=== PATIENT | female | born 1980 | race Caucasian/White ===

== ENCOUNTER 2018-10-10 22:06 | Emergency (ER) | payer BC ==
[2018-10-10 22:31] VITALS: RESP 18; TEMP 98.4
--- NOTE | 2018-10-10 23:38 | ED PDOC ---
HPI: CCC, URI, Sore Throat Time Seen by Provider: 10/10/18 23:00 Chief Complaint (Nursing): ENT Problem Chief Complaint (Provider): throat pain History Per: Patient History/Exam Limitations: no limitations Have you had recent travel within the past 21 days to any of the following countries: [place], [place], [place] or [place]?: No Onset/Duration Of Symptoms: Days Current Symptoms Are (Timing): Still Present Location Of Pain: Throat Sick Contacts (Context): Family Member(s) (sister ) Pain Scale Rating Of: 0 Additional History Per: Patient Additional Complaint(s): 38y/o female with no medication history presents to the ed c/o throat pain for 1 week worse today. Pt reports last friday she felt she was "coming down with something" and was taking home remedies. Today patient reports she could not bear the pain and wanted to come to ED. Pt denies fever, ear pain, n/v, drooling. Past Medical History Vital Signs: Last Vital Signs Temp 98.4 F 10/10/18 22:28 Pulse 86 10/10/18 22:28 Resp 18 10/10/18 22:28 BP 142/95 H 10/10/18 22:28 Pulse Ox 100 10/10/18 22:28 ASHLEY Report Viewed: No - Medical History PMH: No Chronic Diseases - Surgical History Surgical History: No Surg Hx - Family History Family History: States: Unknown Family Hx - Living Arrangements Living Arrangements: With Family - Social History Alcohol: None Drugs: Denies - Allergies Allergies/Adverse Reactions: Allergies Allergy/AdvReac Type Severity Reaction Status Date / Time No Known Allergies Allergy Verified 10/10/18 22:27 Review of Systems ENT: Positive for: Throat Pain (difficulty swolling due to pain, pt also reports unable to stick tongue out due to pain) Musculoskeletal: Positive for: Neck Pain (with movement) Physical Exam - Physical Exam Appears: Positive for: Well, Non-toxic, No Acute Distress Head Exam: Positive for: ATRAUMATIC, NORMAL INSPECTION, NORMOCEPHALIC Skin: Positive for: Normal Color Eye Exam: Positive for: Normal appearance ENT: Positive for: Normal ENT Inspection Neck: Positive for: Supple Cardiovascular/Chest: Positive for: Regular Rate, Rhythm Respiratory: Positive for: Normal Breath Sounds Back: Positive for: Normal Inspection Extremity: Positive for: Normal ROM Neurological/Psych: Positive for: Awake, Alert, Normal Tone, Oriented - Laboratory Results Urine POC: Negative - ECG O2 Sat by Pulse Oximetry: 100 - Progress ED Course And Treament: Rapid Strep: (-) Decadron 10mg IM Tylenol 975mg PO 0.9 NS 500CC CBC CMP TSH 00:00: Pt reassesed at this time. Pt reports pain has improved slightly but continues with pain and difficulty sticking out tongue due to pain. BLE ears are unremarkable. case discussed with Dr. Baldwin, recommendation to do Ct Neck and Soft tissue to r/o [employer] or other probable cause of neck pain. Pt made aware and agrees to plan. 00:10: Pt handed-off to Aretha Hodges, for follow-up of CT results. Re-evaluation Time: 12:09 Condition: Re-examined, Improving,but remains with symptoms Nebulizer Treatments/Peak Flow - Clinical Response Clinical Response: Improved Disposition - Clinical Impression Clinical Impression: Neck pain - Patient ED Disposition Is Patient to be Admitted: No - Disposition Disposition: Routine/Home Disposition Time: 00:00 Condition: STABLE Patient Signed Over To: Carroll Davison Handoff Comments: Pening Blood work and CT scan - POA Present On Arrival: None
[2018-10-11] MEDS ORDERED: Sodium Chloride 0.9% 500 ML IV SCH (00:15)
[2018-10-11 00:19] LABS: BASO # 0.1 K/uL (0.0-0.2); BASO % 0.7 % (0.0-2.0); EOS # 0.3 K/uL (0.0-0.7); EOS % 2.3 % (0.0-4.0); HEMOGLOBIN 12.2 g/dL (12.0-16.0); LYMPH # 2.2 K/uL (1.0-4.3); LYMPH % 17.8 % (20.0-40.0); MEAN CELL VOLUME 86.5 fl (81.0-99.0); MEAN CORPUSCULAR HEMOGLOBIN 28.5 pg (27.0-31.0); MEAN PLATELET VOLUME 7.9 fl (7.2-11.7); MONO # 0.8 K/uL (0.0-0.8); MONO % 6.4 % (0.0-10.0); NEUT # 9.1 K/uL (1.8-7.0); NEUT % 72.8 % (50.0-75.0); RBC 4.27 Mil/uL (3.80-5.20); RED CELL DISTRIBUTION WIDTH 13.4 % (11.5-14.5); WHITE BLOOD COUNT 12.5 K/uL (4.8-10.8)
[2018-10-11 00:46] LABS: ALT/SGPT 18 U/L (9-52); AST/SGOT 20 U/L (14-36); BLOOD UREA NITROGEN 9 mg/dl (7-17); CALCIUM 9.2 mg/dL (8.4-10.2); GFR NON-AFRICAN AMERICAN > 60
[2018-10-11] MEDS ORDERED: Iohexol 300 100 ML IJ ONE (01:11)
[2018-10-11] MEDS ORDERED: Sodium Chloride 0.9% 50 ML IV ONE (01:11)
--- NOTE | 2018-10-11 02:33 | ED PDOC ---
- Laboratory Results Result Diagrams: 10/11/18 00:10 10/11/18 00:10 Lab Results: Total Bilirubin 0.7 mg/dl (0.2-1.3) 10/11/18 00:10 AST 20 U/L (14-36) 10/11/18 00:10 ALT 18 U/L (9-52) 10/11/18 00:10 Alkaline Phosphatase 113 U/L (38-126) 10/11/18 00:10 Total Protein 8.0 G/DL (6.3-8.2) 10/11/18 00:10 Albumin 4.0 g/dL (3.5-5.0) 10/11/18 00:10 Globulin 4.0 gm/dL (2.2-3.9) H 10/11/18 00:10 Albumin/Globulin Ratio 1.0 (1.0-2.1) 10/11/18 00:10 Urine POC: Negative - ECG O2 Sat by Pulse Oximetry: 100 - Progress ED Course And Treament: ct soft tissue neck: negative for abscess. Disposition - Clinical Impression Clinical Impression: Neck pain, Pharyngitis - POA Present On Arrival: None - Disposition Disposition: Routine/Home Disposition Time: 02:33 Condition: STABLE Prescriptions: Ibuprofen [Motrin] 600 mg PO Q8 PRN #21 tab PRN Reason: Pain, Moderate (4-7) Instructions: Neck Pain, Viral Pharyngitis (DC)
[2018-10-11 02:50] VITALS: BP 116/80; PULSE 79; O2SAT 99
--- NOTE | 2018-10-11 13:19 | CT ---
Date of service: 10/11/2018 PROCEDURE: CT NECK WITH CONTRAST HISTORY: neck pain COMPARISON: None available. TECHNIQUE: CT of the neck with intravenous contrast. Coronal and sagittal reformats generated. Intravenous contrast dose: 95 milliliters Radiation dose: Total exam DLP = 262.11 mGy-cm. This CT exam was performed using one or more of the following dose reduction techniques: Automated exposure control, adjustment of the mA and/or kV according to patient size, and/or use of iterative reconstruction technique. FINDINGS: NASOPHARYNX: No focal soft tissue mass is seen in the posterior nasopharynx. No appreciable abscess is noted. SUPRAHYOID NECK: Minor lingual tonsillar enlargement is noted without evidence of focal soft tissue to suggest significant phlegmon or abscess. Tongue base region is unremarkable. Epiglottis and supraglottic region are otherwise unremarkable. INFRAHYOID NECK: Unremarkable larynx, hypopharynx, and supraglottic space. Vocal cords intact. MASS: None. GLANDS: Parotid and submandibular glands unremarkable. Normal size thyroid gland, without nodule. LYMPH NODES: A number of small scattered shotty lymph nodes are seen in the neck. No enlarged lymph nodes are identified. CERVICAL SPINE: No fracture or focal lesion. VASCULAR STRUCTURES: Unremarkable. OTHER FINDINGS: Visualized sinuses show no evidence of significant mucosal thickening or fluid level. Retro-orbital regions are unremarkable. Visualized portions of the brain are within normal limits. Mastoid air cells are well aerated with additional aerated petrous apices incidentally seen. IMPRESSION: No appreciable retropharyngeal or oral pharyngeal abscess. This agrees with preliminary report provided by the on-call radiologist.
== END 2018-10-11 02:51 | disposition home or self-care (01) ==
LOC: H.ER 22:06
DX: M54.2 Cervicalgia (principal)
CPT/HCPCS: 70491; 80053; 81025; 84443; 85025; 87070; 87430; 96372; 99283; J1100; Q9967